=== PATIENT | male | born 1995 | race Caucasian/White ===

== ENCOUNTER 2019-01-29 11:20 | Emergency (ER) | payer SELFPAY ==
[~2019-01-29] VITALS: Ht 177.8 cm; Wt 58.0 kg
--- NOTE | 2019-01-29 14:00 | NUR ---
RIGHT HAND DIGITS SOAKING IN WATER WITH BETADINE. AWAITING MD CASTANEDA
[2019-01-29] MEDS ORDERED: FENTANYL PF 100 MCG/2ML IM ONE (14:30)
[2019-01-29] MEDS ORDERED: LIDOCAINE-MPF 1%, 5ML ONE (14:32)
[2019-01-29] MEDS ORDERED: FENTANYL PF 100 MCG/2ML ONE (14:33)
--- NOTE | 2019-01-29 14:40 | NUR ---
ORTHO MD AT BEDSIDE PREPARING TO NUMB AND CLEAN FINGER WOUND
[2019-01-29 16:19] VITALS: BP 100/64
--- NOTE | 2019-01-29 16:19 | NUR ---
PT NOTED TO HAVE CLEAN DRY DRESSING IN PLACE WITH FINGER SPLINT. DISCHARGE PAPERS GIVEN
== END 2019-01-29 16:21 | disposition home or self-care (01) ==
LOC: ED 11:43
DX: S63.284A Dislocation of proximal interphalangeal joint of right ring finger, initial encounter (principal); S62.034A Nondisplaced fracture of proximal third of navicular [scaphoid] bone of right wrist, initial encounter for closed fracture; W19.XXXA Unspecified fall, initial encounter; Y93.89 Activity, other specified; Y92.009 Unspecified place in unspecified non-institutional (private) residence as the place of occurrence of the external cause; Y99.8 Other external cause status
CPT/HCPCS: 26770; 73110; 73130; 73140; 96372; 99284; J3010

== ENCOUNTER 2019-12-12 11:17 | Emergency (ER) | payer OTHER ==
[~2019-12-12] VITALS: Ht 177.8 cm; Wt 59.7 kg
[2019-12-12 11:22] VITALS: BP 116/77
--- NOTE | 2019-12-12 11:27 | NUR ---
PATIENT ARRIVES WITH COUGH, PHLEGM, SOB, FEVERS AND BODY ACHES SINCE YESTERDAY. HE ARRIVES WITH HIS GIRLFRIEND WHO HAS THE SAME. NO RECENT TRAVEL
== END 2019-12-12 12:37 | disposition home or self-care (01) ==
LOC: ED 11:50
DX: J00 Acute nasopharyngitis [common cold] (principal); R06.00 Dyspnea, unspecified
CPT/HCPCS: 71045; 93005; 99283; 99284